=== PATIENT | male | born 1935 | race Caucasian/White ===

== ENCOUNTER 2017-10-13 21:39 | Inpatient (IN) ==
[2017-10-13 22:13] LABS: Basophils % 0.2 % (0.0-0.8); Eosinophils % 0.2 % (0.00-10.9); Hematocrit 32.8 VOL% (42.0-52.0); Hemoglobin 10.4 GM/DL (14.0-18.0); Immature Granulocytes % 6.2 %; Immature Granulocytes Absolute 0.31 #; Lymphocytes # 1.3 10*3/uL (1.4-4.0); Lymphocytes % 26.2 % (21.2-54.2); Mean Corpuscular HGB Conc 31.7 GM/DL (32-36); Mean Corpuscular Hemoglobin 33 PG (27-34); Mean Corpuscular Volume 104.1 FL (87-102); Mean Platelet Volume 10.2 FL (9.6-12.0); Monocytes # 1.1 10*3/uL (0.11-0.8); Monocytes % 21.1 % (1.7-12.7); Neutrophils # 2.3 10*3/uL (1.4-7.4); Neutrophils % 46.1 % (38.7-73.9); Platelet Count 129 T/CUMM (130-400); Red Blood Count 3.15 MC/CUMM (3.8-5.5); Red Cell Distribution Width 16.8 % (9.3-17.3)
[2017-10-13 22:23] LABS: Calcium 8.8 MG/DL (8.5-10.1); Potassium 3.6 MMOL/L (3.5-5.1)
[2017-10-13 23:02] LABS: Anisocytosis 1+; Band Neutrophils 16 % (0-10); Lymphocytes 29 % (20-55); Macrocytosis 1+; Metamyelocytes 2 %; Myelocytes 1 %; Nucleated Red Blood Cells 1 (0-5); Segmented Neutrophils 40 % (50-85); Total Cells Counted 100
[2017-10-13 23:03] LABS: Poikilocytosis 1+
[2017-10-14 05:54] LABS: Risk Ratio 4.09; VLDL CHOLESTEROL 18.4 MG/DL
[2017-10-15 06:11] LABS: Basophils % 0.4 % (0.0-0.8); Eosinophils # 0.1 10*3/uL (0.0-0.87); Hematocrit 31.4 VOL% (42.0-52.0); Hemoglobin 9.7 GM/DL (14.0-18.0); Immature Granulocytes % 6.1 %; Immature Granulocytes Absolute 0.32 #; Lymphocytes # 1.2 10*3/uL (1.4-4.0); Lymphocytes % 23.4 % (21.2-54.2); Mean Corpuscular HGB Conc 30.9 GM/DL (32-36); Mean Corpuscular Hemoglobin 33 PG (27-34); Mean Corpuscular Volume 105.7 FL (87-102); Mean Platelet Volume 10.4 FL (9.6-12.0); Monocytes % 18.4 % (1.7-12.7); NRBC # 0.02 10*3/uL; Neutrophils # 2.7 10*3/uL (1.4-7.4); Neutrophils % 50.7 % (38.7-73.9); Platelet Count 106 T/CUMM (130-400); Red Blood Count 2.97 MC/CUMM (3.8-5.5); Red Cell Distribution Width 16.9 % (9.3-17.3); White Blood Count 5.3 T/CUMM (4-12)
[2017-10-15 06:21] LABS: Band Neutrophils 4 % (0-10); Eosinophils 2 % (0-10); Hypochromasia 2+; Lymphocytes 26 % (20-55); Metamyelocytes 2 %; Myelocytes 2 %; Platelet Estimate Decreased; Segmented Neutrophils 48 % (50-85); Total Cells Counted 100
[2017-10-15 06:22] LABS: Anisocytosis 2+; Macrocytosis 2+
[2017-10-15 06:33] LABS: Calcium 8.4 MG/DL (8.5-10.1); Potassium 3.6 MMOL/L (3.5-5.1)
[2017-10-15 13:09] VITALS: BP 146/78
== END 2017-10-15 13:00 | disposition home or self-care (01) | DRG 552 ==
LOC: EDBD → EDUNIT# → N.ED 21:39 → SUATTDRO 10-14 00:07 → N.EDINP 10-14 00:07 → N.5E 10-14 01:10
PROVIDERS: ADMIT Internal Medicine

== ENCOUNTER 2018-06-19 10:04 | Inpatient (IN) ==
[2018-06-19 11:02] LABS: Immature Granulocytes % 10.3 %; Immature Granulocytes Absolute 0.56 #; Lymphocytes # 1.3 10*3/uL (1.4-4.0); Lymphocytes % 23.1 % (21.2-54.2); Mean Corpuscular HGB Conc 31.2 GM/DL (32-36); Mean Corpuscular Hemoglobin 34 PG (27-34); Mean Corpuscular Volume 109.2 FL (87-102); Mean Platelet Volume 10.4 FL (9.6-12.0); Monocytes # 1.2 10*3/uL (0.11-0.8); Monocytes % 22.7 % (1.7-12.7); Neutrophils # 2.4 10*3/uL (1.4-7.4); Neutrophils % 43.9 % (38.7-73.9); Red Blood Count 1.41 MC/CUMM (3.8-5.5); Red Cell Distribution Width 17.7 % (9.3-17.3); White Blood Count 5.4 T/CUMM (4-12)
[2018-06-19 11:03] LABS: Hematocrit 15.4 VOL% (42.0-52.0); Hemoglobin 4.8 GM/DL (14.0-18.0); Platelet Count 26 T/CUMM (130-400)
[2018-06-19 11:26] LABS: % Iron Saturation 97.8 % (18-50); Albumin 3.8 G/DL (3.4-5.0); Bilirubin,Total 0.5 MG/DL (0.2-1.0); Calcium 9.1 MG/DL (8.5-10.1); Ferritin 633.9 ng/ml (26-388); Osmolality,Calculated 278.7 MOS/KG (273-304); Potassium 4.2 MMOL/L (3.5-5.1); Total Protein 8.3 G/DL (6.4-8.3)
[2018-06-19 11:29] LABS: Band Neutrophils 1 % (0-10); Lymphocytes 24 % (20-55); Metamyelocytes 1 %; Myelocytes 6 %; Segmented Neutrophils 44 % (50-85); Total Cells Counted 100
[2018-06-19 11:30] LABS: Atypical Lymphocytes Few; Hypochromasia 1+; Macrocytosis 1+; Ovalocytes Slight; Platelet Estimate Decreased
[2018-06-19] MEDS ORDERED: SODIUM CHLORIDE 0.9% 1,000 ML IV PRN ×2 (11:38→16:33)
[2018-06-19 12:00] LABS: Folate 9.5 NG/ML (5.4-24.0)
[2018-06-19] MEDS ORDERED: ACETAMINOPHEN 325 MG TABLET PO PRN (12:08)
[2018-06-19] MEDS ORDERED: DOCUSATE SODIUM 100 MG CAPSULE PO PRN (12:08)
[2018-06-19] MEDS ORDERED: ONDANSETRON 4 MG/2 ML VIAL IV PRN (12:08)
[2018-06-19] MEDS ORDERED: tiZANidine 4 MG TABLET PO PRN (12:27)
[2018-06-19 12:42] LABS: Thyroid Stimulating Hormone 2.07 uIU/ml (0.358-3.74)
[2018-06-19 13:10] LABS: Apearance,Urine CLEAR (Clear); Bilirubin,Urine Negative (Negative); Blood, Urine Small mg/dL (Negative); Glucose,Urine (UA) Negative (Negative); Ketones,Urine Negative (Negative); Mucus,Urine Occasional /LPF (Occasional); Nitrite,Urine Negative (Negative); Protein,Urine 30 MG/DL; RBC,Urine <1 /HPF (0-4); Urine Color Yellow (Yellow); Urine Specific Gravity 1.016 (1.001-1.035); Urine Urobilinogen < 2.0 EU/DL (0.2-1.0); WBC,Urine <1 /HPF (0-6)
[2018-06-19] MEDS ORDERED: FUROSEMIDE 40 MG/4 ML VIAL IV ONE (16:00)
[2018-06-19] MEDS: CLORAZEPATE 7.5 MG TABLET PO SCH ×2 (17:00→20:53)
[2018-06-20 04:57] LABS: Eosinophils % 0.2 % (0.00-10.9); Hematocrit 22.1 VOL% (42.0-52.0); Hemoglobin 7.3 GM/DL (14.0-18.0); Immature Granulocytes % 9.6 %; Immature Granulocytes Absolute 0.57 #; Lymphocytes # 1.7 10*3/uL (1.4-4.0); Lymphocytes % 28.3 % (21.2-54.2); Mean Corpuscular Hemoglobin 30 PG (27-34); Mean Corpuscular Volume 90.9 FL (87-102); Mean Platelet Volume 9.9 FL (9.6-12.0); Monocytes # 1.9 10*3/uL (0.11-0.8); Monocytes % 31.5 % (1.7-12.7); Neutrophils # 1.8 10*3/uL (1.4-7.4); Neutrophils % 30.4 % (38.7-73.9); Platelet Count 58 T/CUMM (130-400); Red Blood Count 2.43 MC/CUMM (3.8-5.5); Red Cell Distribution Width 22.5 % (9.3-17.3); White Blood Count 5.9 T/CUMM (4-12)
[2018-06-20 06:00] LABS: Albumin 3.4 G/DL (3.4-5.0); Bilirubin,Total 0.6 MG/DL (0.2-1.0); Osmolality,Calculated 277.8 MOS/KG (273-304)
[2018-06-20 06:47] LABS: Band Neutrophils 5 % (0-10); Eosinophils 1 % (0-10); Lymphocytes 40 % (20-55); Metamyelocytes 1 %; Myelocytes 6 %; Promyelocytes 1 %; Segmented Neutrophils 22 % (50-85); Total Cells Counted 100
[2018-06-20 06:48] LABS: Atypical Lymphocytes Few; Hypochromasia 1+; Microcytosis 1+; Ovalocytes Slight; Target Cells Slight
[2018-06-20 06:49] LABS: Platelet Estimate Decreased
[2018-06-20] MEDS ORDERED: SODIUM CHLORIDE 0.9% 1,000 ML IV PRN (07:07)
[2018-06-20] MEDS ORDERED: PANTOPRAZOLE 40 MG TABLET PO SCH (09:00)
[2018-06-20] MEDS: OMEGA 3 ACID ETHYL ESTERS 1 GM CAPSULE PO SCH (10:27)
[2018-06-20] MEDS: CLORAZEPATE 7.5 MG TABLET PO SCH ×3 (10:27→21:07)
[2018-06-20] MEDS ORDERED: HEPARIN 5,000 UNIT/1 ML VIAL ONE (10:36)
[2018-06-21 04:51] LABS: Basophils % 0.2 % (0.0-0.8); Eosinophils % 0.4 % (0.00-10.9); Hematocrit 27.9 VOL% (42.0-52.0); Hemoglobin 9.3 GM/DL (14.0-18.0); Immature Granulocytes % 7.3 %; Immature Granulocytes Absolute 0.36 #; Lymphocytes # 1.6 10*3/uL (1.4-4.0); Lymphocytes % 31.3 % (21.2-54.2); Mean Corpuscular HGB Conc 33.3 GM/DL (32-36); Mean Corpuscular Hemoglobin 30 PG (27-34); Mean Corpuscular Volume 90.9 FL (87-102); Mean Platelet Volume 9.8 FL (9.6-12.0); Monocytes # 1.9 10*3/uL (0.11-0.8); Monocytes % 37.7 % (1.7-12.7); Neutrophils # 1.2 10*3/uL (1.4-7.4); Neutrophils % 23.1 % (38.7-73.9); Red Blood Count 3.07 MC/CUMM (3.8-5.5); Red Cell Distribution Width 20.6 % (9.3-17.3)
[2018-06-21 04:52] LABS: Platelet Count 47 T/CUMM (130-400)
[2018-06-21 05:05] LABS: Albumin 3.2 G/DL (3.4-5.0); Bilirubin,Total 0.6 MG/DL (0.2-1.0); Calcium 8.5 MG/DL (8.5-10.1); Osmolality,Calculated 287.4 MOS/KG (273-304); Potassium 3.9 MMOL/L (3.5-5.1); Total Protein 7.4 G/DL (6.4-8.3)
[2018-06-21 05:23] LABS: Hypochromasia Slight; Platelet Estimate Decreased
[2018-06-21 05:36] LABS: Eosinophils 1 % (0-10); Lymphocytes 65 % (20-55); Metamyelocytes 2 %; Myelocytes 5 %; Segmented Neutrophils 19 % (50-85); Total Cells Counted 100
[2018-06-21 05:37] LABS: Reactive Lymphocytes Few
[2018-06-21 05:38] LABS: Smudge Cells Few
[2018-06-21] MEDS: CLORAZEPATE 7.5 MG TABLET PO SCH (08:20)
[2018-06-21] MEDS: OMEGA 3 ACID ETHYL ESTERS 1 GM CAPSULE PO SCH (08:20)
[2018-06-21 11:22] VITALS: BP 142/68
== END 2018-06-21 14:40 | disposition home or self-care (01) | DRG 836 ==
LOC: N.ED 10:04 → SUPCPDRO 12:38 → N.EDINP 12:38 → SUATTDRO 12:38 → N.4E 13:30
PROVIDERS: ADMIT Internal Medicine; ATTEND Internal Medicine Cardiovascular Disease

== ENCOUNTER 2018-07-16 10:20 | Inpatient (IN) ==
[2018-07-16] MEDS ORDERED: SODIUM CHLORIDE 0.9% 1,000 ML IV STA (10:46)
[2018-07-16 11:24] LABS: Hematocrit 20.8 VOL% (42.0-52.0); Hemoglobin 6.6 GM/DL (14.0-18.0); Immature Granulocytes % 3.6 %; Immature Granulocytes Absolute 1.35 #; Lymphocytes # 8.4 10*3/uL (1.4-4.0); Lymphocytes % 22.5 % (21.2-54.2); Mean Corpuscular HGB Conc 31.7 GM/DL (32-36); Mean Corpuscular Hemoglobin 30 PG (27-34); Mean Corpuscular Volume 93.3 FL (87-102); Mean Platelet Volume 10.7 FL (9.6-12.0); Monocytes # 23.3 10*3/uL (0.11-0.8); Monocytes % 62.1 % (1.7-12.7); Neutrophils # 4.4 10*3/uL (1.4-7.4); Neutrophils % 11.8 % (38.7-73.9); Red Blood Count 2.23 MC/CUMM (3.8-5.5); Red Cell Distribution Width 16.7 % (9.3-17.3); White Blood Count 37.5 T/CUMM (4-12)
[2018-07-16 11:28] LABS: Platelet Count 7 T/CUMM (130-400)
[2018-07-16 11:42] LABS: Alanine Aminotransferase 19 U/L (16-61); Albumin 3.4 G/DL (3.4-5.0); Alkaline Phosphatase 83 U/L (45-117); Aspartate Amino Transferase 17 U/L (0-37); Bilirubin,Total < 0.39 MG/DL (0.2-1.0); Blood Urea Nitrogen 22 MG/DL (7-18); Calcium 8.7 MG/DL (8.5-10.1); Glucose 126 MG/DL (74-106); Sodium 136 MMOL/L (136-145); Total Protein 7.7 G/DL (6.4-8.3)
[2018-07-16 12:01] LABS: Lymphocytes 16 % (20-55); Segmented Neutrophils 9 % (50-85); Total Cells Counted 100
[2018-07-16] MEDS ORDERED: SODIUM CHLORIDE 0.9% 1,000 ML IV PRN (12:07)
[2018-07-16 12:10] LABS: Hypochromasia 1+; Microcytosis 1+; Ovalocytes Slight
[2018-07-16 12:11] LABS: Platelet Estimate Decreased; Polychromasia Slight
[2018-07-16] MEDS ORDERED: LEVOFLOXACIN INJ 500 MG in PREMIX 1 EACH IV STA (13:40)
[2018-07-16] MEDS ORDERED: ONDANSETRON 4 MG TABLET PO PRN (13:59)
[2018-07-16] MEDS ORDERED: tiZANidine 4 MG TABLET PO PRN (13:59)
[2018-07-16] MEDS ORDERED: NITROGLYCERIN SL 0.4 MG TABLET SL PRN (13:59)
[2018-07-16] MEDS ORDERED: LEVOFLOXACIN INJ 750 MG in PREMIX 1 EACH IV SCH (14:00)
[2018-07-16] MEDS ORDERED: PROMETHAZINE 25 MG TABLET PO PRN (14:10)
[2018-07-16] MEDS ORDERED: ONDANSETRON 4 MG/2 ML VIAL IV PRN (14:10)
[2018-07-16] MEDS ORDERED: ZALEPLON 5 MG CAPSULE PO PRN (14:10)
[2018-07-16] MEDS ORDERED: guaiFENesin/DM ER 600-30 MG TABLET PO PRN (14:10)
[2018-07-16] MEDS ORDERED: MAGNESIUM SULF RIDER 2 GM in PREMIX 1 EACH IV PRN (14:10)
[2018-07-16] MEDS ORDERED: MAGNESIUM SULF RIDER 4 GM in PREMIX 1 EACH IV PRN (14:10)
[2018-07-16] MEDS ORDERED: diphenhydrAMINE CAP 25 MG CAPSULE PO PRN (14:10)
[2018-07-16] MEDS ORDERED: traZODone 50 MG TABLET PO PRN (14:10)
[2018-07-16 14:43] LABS: Apearance,Urine Slightly Hazy (Clear); Bilirubin,Urine Negative (Negative); Blood, Urine Moderate mg/dL (Negative); Glucose,Urine (UA) Negative (Negative); Granular Casts,Urine 4 /LPF (0-1); Ketones,Urine Negative (Negative); Mucus,Urine Few /LPF (Occasional); Nitrite,Urine Negative (Negative); Protein,Urine 100 MG/DL; RBC,Urine 5 /HPF (0-4); Urine Color Yellow (Yellow); Urine Specific Gravity 1.021 (1.001-1.035); Urine Urobilinogen < 2.0 EU/DL (0.2-1.0)
[2018-07-16] MEDS: SODIUM CHLORIDE 0.9% 1,000 ML IV SCH (16:51)
[2018-07-16] MEDS: PIPERACILLIN/TAZOBACTAM 3,375 MG in SODIUM CHLORIDE 0.9% 100 ML IV SCH (16:53)
[2018-07-16] MEDS: CLORAZEPATE 7.5 MG TABLET PO SCH ×2 (16:53→20:49)
[2018-07-16] MEDS: ALBUTEROL/IPRATROPIUM 3 ML NEB RESP TX SCH (20:00)
[2018-07-16] MEDS: DOCUSATE SODIUM 100 MG CAPSULE PO SCH (20:49)
[2018-07-16] MEDS ORDERED: VANCOMYCIN INJ 1,000 MG in SODIUM CHLORIDE 0.9% 250 ML IV SCH (21:00)
[2018-07-16] MEDS ORDERED: VENETOCLAX 100 MG PO SCH (21:00)
[2018-07-17] MEDS: ALBUTEROL/IPRATROPIUM 3 ML NEB RESP TX SCH ×4 (01:15→20:06)
[2018-07-17] MEDS: PIPERACILLIN/TAZOBACTAM 3,375 MG in SODIUM CHLORIDE 0.9% 100 ML IV SCH (01:26)
[2018-07-17 05:06] LABS: Albumin 2.8 G/DL (3.4-5.0); Bilirubin,Total 0.7 MG/DL (0.2-1.0); Calcium 8.4 MG/DL (8.5-10.1); Osmolality,Calculated 279.5 MOS/KG (273-304); Potassium 3.9 MMOL/L (3.5-5.1); Total Protein 6.9 G/DL (6.4-8.3)
[2018-07-17] MEDS: CLORAZEPATE 7.5 MG TABLET PO SCH ×3 (08:27→22:20)
[2018-07-17] MEDS: ALLOPURINOL 100 MG TABLET PO SCH (08:27)
[2018-07-17] MEDS: OMEGA 3 ACID ETHYL ESTERS 1 GM CAPSULE PO SCH (08:27)
[2018-07-17] MEDS: DOCUSATE SODIUM 100 MG CAPSULE PO SCH ×2 (08:27→22:20)
[2018-07-17 08:32] LABS: Hematocrit 22.7 VOL% (42.0-52.0); Hemoglobin 7.2 GM/DL (14.0-18.0); Immature Granulocytes % 3.7 %; Lymphocytes # 13.1 10*3/uL (1.4-4.0); Lymphocytes % 23.9 % (21.2-54.2); Mean Corpuscular HGB Conc 31.7 GM/DL (32-36); Mean Corpuscular Hemoglobin 29 PG (27-34); Mean Corpuscular Volume 90.8 FL (87-102); Monocytes # 35.3 10*3/uL (0.11-0.8); Monocytes % 64.5 % (1.7-12.7); Neutrophils # 4.3 10*3/uL (1.4-7.4); Neutrophils % 7.9 % (38.7-73.9)
[2018-07-17 08:36] LABS: Platelet Count 27 T/CUMM (130-400); White Blood Count 54.7 T/CUMM (4-12)
[2018-07-17 08:55] LABS: Atypical Lymphocytes Few; Hypochromasia 1+; Lymphocytes 21 % (20-55); Platelet Estimate Decreased; Segmented Neutrophils 6 % (50-85); Total Cells Counted 100
[2018-07-17 08:56] LABS: Microcytosis 1+
[2018-07-17] MEDS: LEVOFLOXACIN INJ 500 MG in PREMIX 1 EACH IV SCH (08:58)
[2018-07-17] MEDS ORDERED: PANTOPRAZOLE 40 MG TABLET PO SCH (09:00)
[2018-07-17] MEDS ORDERED: SODIUM CHLORIDE 0.9% 1,000 ML IV PRN (09:13)
[2018-07-17] MEDS: ACETAMINOPHEN 325 MG TABLET PO PRN ×3 (10:59→22:24)
[2018-07-17] MEDS ORDERED: LEVOFLOXACIN INJ 750 MG in PREMIX 1 EACH IV SCH (14:00)
[2018-07-17] MEDS: SODIUM CHLORIDE 0.9% 1,000 ML IV SCH (16:27)
[2018-07-17] MEDS: DULoxetine 20 MG CAPSULE PO SCH (18:23)
[2018-07-18] MEDS: ALBUTEROL/IPRATROPIUM 3 ML NEB RESP TX SCH ×4 (01:19→19:55)
[2018-07-18] MEDS: SODIUM CHLORIDE 0.9% 1,000 ML IV SCH ×3 (05:23→17:09)
[2018-07-18 05:45] LABS: Basophils # 0.1 10*3/uL (0.0-0.2); Basophils % 0.1 % (0.0-0.8); Hematocrit 27.9 VOL% (42.0-52.0); Hemoglobin 9.1 GM/DL (14.0-18.0); Immature Granulocytes % 3.2 %; Immature Granulocytes Absolute 2.02 #; Lymphocytes # 9.9 10*3/uL (1.4-4.0); Lymphocytes % 15.4 % (21.2-54.2); Mean Corpuscular HGB Conc 32.6 GM/DL (32-36); Mean Corpuscular Hemoglobin 29 PG (27-34); Mean Corpuscular Volume 89.4 FL (87-102); Mean Platelet Volume 10.4 FL (9.6-12.0); Monocytes # 47.4 10*3/uL (0.11-0.8); Monocytes % 74.1 % (1.7-12.7); Neutrophils # 4.6 10*3/uL (1.4-7.4); Neutrophils % 7.2 % (38.7-73.9); Red Blood Count 3.12 MC/CUMM (3.8-5.5); Red Cell Distribution Width 16.9 % (9.3-17.3)
[2018-07-18 05:47] LABS: Platelet Count 18 T/CUMM (130-400); White Blood Count 63.9 T/CUMM (4-12)
[2018-07-18 06:05] LABS: Albumin 2.8 G/DL (3.4-5.0); Bilirubin,Total 0.7 MG/DL (0.2-1.0); Calcium 8.2 MG/DL (8.5-10.1); Osmolality,Calculated 280.4 MOS/KG (273-304); Potassium 3.3 MMOL/L (3.5-5.1); Total Protein 6.7 G/DL (6.4-8.3)
[2018-07-18 06:14] LABS: Atypical Lymphocytes Few; Band Neutrophils 2 % (0-10); Hypochromasia 1+; Lymphocytes 26 % (20-55); Platelet Estimate Decreased; Segmented Neutrophils 8 % (50-85); Total Cells Counted 100
[2018-07-18 06:15] LABS: Microcytosis 1+
[2018-07-18] MEDS ORDERED: SODIUM CHLORIDE 0.9% 1,000 ML IV PRN (07:16)
[2018-07-18] MEDS: CLORAZEPATE 7.5 MG TABLET PO SCH ×4 (08:29→23:23)
[2018-07-18] MEDS: DULoxetine 20 MG CAPSULE PO SCH (08:29)
[2018-07-18] MEDS: DOCUSATE SODIUM 100 MG CAPSULE PO SCH ×2 (08:29→23:23)
[2018-07-18] MEDS: OMEGA 3 ACID ETHYL ESTERS 1 GM CAPSULE PO SCH (08:30)
[2018-07-18] MEDS: ALLOPURINOL 100 MG TABLET PO SCH (08:30)
[2018-07-18] MEDS: LEVOFLOXACIN INJ 500 MG in PREMIX 1 EACH IV SCH (08:32)
[2018-07-18] MEDS ORDERED: VENETOCLAX 200 MG PO SCH (09:00)
[2018-07-18] MEDS: ACETAMINOPHEN 325 MG TABLET PO PRN (12:02)
[2018-07-18] MEDS ORDERED: POTASSIUM CHLORIDE 20 MEQ TABLET PO ONE (15:27)
[2018-07-19 04:22] LABS: Hematocrit 26.3 VOL% (42.0-52.0); Hemoglobin 8.5 GM/DL (14.0-18.0); Immature Granulocytes % 3.3 %; Lymphocytes # 14.5 10*3/uL (1.4-4.0); Lymphocytes % 16.9 % (21.2-54.2); Mean Corpuscular HGB Conc 32.3 GM/DL (32-36); Mean Corpuscular Hemoglobin 29 PG (27-34); Mean Corpuscular Volume 90.1 FL (87-102); Mean Platelet Volume 11.2 FL (9.6-12.0); Monocytes # 63.5 10*3/uL (0.11-0.8); Monocytes % 74.1 % (1.7-12.7); Neutrophils # 4.9 10*3/uL (1.4-7.4); Neutrophils % 5.7 % (38.7-73.9); Platelet Count 41 T/CUMM (130-400); Red Blood Count 2.92 MC/CUMM (3.8-5.5); Red Cell Distribution Width 17.1 % (9.3-17.3)
[2018-07-19 04:26] LABS: White Blood Count 85.7 T/CUMM (4-12)
[2018-07-19 04:47] LABS: Albumin 2.7 G/DL (3.4-5.0); Bilirubin,Total 0.7 MG/DL (0.2-1.0); Calcium 8.3 MG/DL (8.5-10.1); Osmolality,Calculated 273.7 MOS/KG (273-304); Potassium 3.8 MMOL/L (3.5-5.1); Total Protein 6.6 G/DL (6.4-8.3)
[2018-07-19 05:30] LABS: Band Neutrophils 2 % (0-10); Eosinophils 2 % (0-10); Lymphocytes 15 % (20-55); Metamyelocytes 1 %; Myelocytes 2 %; Segmented Neutrophils 5 % (50-85); Total Cells Counted 100
[2018-07-19 05:31] LABS: Atypical Lymphocytes Few; Hypochromasia Slight; Platelet Estimate Decreased; Smudge Cells Few
[2018-07-19] MEDS: ALBUTEROL/IPRATROPIUM 3 ML NEB RESP TX SCH ×2 (08:09)
[2018-07-19] MEDS: LEVOFLOXACIN INJ 500 MG in PREMIX 1 EACH IV SCH (08:20)
[2018-07-19] MEDS: DOCUSATE SODIUM 100 MG CAPSULE PO SCH (08:22)
[2018-07-19] MEDS: ALLOPURINOL 100 MG TABLET PO SCH (08:22)
[2018-07-19] MEDS: DULoxetine 20 MG CAPSULE PO SCH (08:22)
[2018-07-19] MEDS: OMEGA 3 ACID ETHYL ESTERS 1 GM CAPSULE PO SCH (08:22)
[2018-07-19] MEDS: CLORAZEPATE 7.5 MG TABLET PO SCH (08:22)
[2018-07-19] MEDS: SODIUM CHLORIDE 0.9% 1,000 ML IV SCH (08:22)
[2018-07-19] MEDS ORDERED: POTASSIUM CHLORIDE 20 MEQ TABLET PO SCH (09:00)
[2018-07-19] MEDS: ACETAMINOPHEN 325 MG TABLET PO PRN (11:32)
[2018-07-19 12:13] VITALS: BP 135/79
== END 2018-07-19 13:55 | disposition hospice, home (50) | DRG 836 ==
LOC: EDUNIT# → EDBD → N.ED 10:20 → N.EDINP 10:20 → N.4E 14:30
PROVIDERS: ADMIT Hospitalist; ATTEND Hospitalist